=== PATIENT | female | born 1960 | race Caucasian/White ===

== ENCOUNTER 2016-07-06 07:34 | Emergency (ER) | payer MEDICAID ==
[~2016-07-06] VITALS: Ht 154.9 cm; Wt 63.5 kg
[2016-07-06 07:42] VITALS: BP 155/83
== END 2016-07-06 08:29 | disposition home or self-care (01) ==
LOC: ER 07:34
DX: F32.9 Major depressive disorder, single episode, unspecified (principal); Z76.0 Encounter for issue of repeat prescription

== ENCOUNTER 2016-08-06 10:50 | Emergency (ER) | payer MEDICAID ==
[~2016-08-06] VITALS: Ht 154.9 cm; Wt 72.6 kg
[2016-08-06 11:09] VITALS: BP 129/84
== END 2016-08-06 11:42 | disposition home or self-care (01) ==
LOC: ER 10:50
DX: I10 Essential (primary) hypertension (principal); Z76.0 Encounter for issue of repeat prescription

== ENCOUNTER → 2016-12-12 | Outpatient (CLI) | payer MEDICAID ==
[2016-12-13 08:56] LABS: Urine RBC None Seen /hpf (0 - 4)
[2016-12-13 09:21] LABS: Basophils # (auto) 0.1 uL; Basophils % (auto) 1.5 % (0.0-2.0); Eosinophils # (auto) 0.2 uL; Eosinophils % (auto) 3.4 % (0.0-7.0); Hematocrit 44.7 % (36.0-46.0); Hemoglobin 14.9 g/dL (12.2-16.2); Lymphocytes % (auto) 28.9 % (10.0-50.0); Mean Corpuscular Hemoglobin 28.4 pg (28.0-32.0); Mean Corpuscular Hgb Conc. 33.3 g/dL (32.0-36.0); Mean Corpuscular Volume 85.1 fL (80.0-100.0); Mean Platelet Volume 7.7 fL (6.9-10.8); Monocytes # (auto) 0.8 uL; Monocytes % (auto) 11.4 % (0.0-12.0); Neutrophils # (auto) 3.9 uL; Neutrophils % (auto) 54.8 % (37.0-80.0); Nucleated Red Blood Cells % 0.1 %; Platelet Count (auto) 337 10^3/uL (140-450); Red Cell Distribution Width 13.8 % (11.8-14.3)
[2016-12-13 09:41] LABS: Urine Bilirubin Negative (Negative); Urine Blood Negative /uL (Negative); Urine Color Yellow (Yellow); Urine Glucose Normal (Normal); Urine Ketone Negative (Negative); Urine Nitrite Negative (Negative); Urine Squamous Epithelial Cell FEW /hpf (<5); Urine Urobilinogen Normal (Negative)
[2016-12-13 09:59] LABS: Albumin 3.3 g/dL (3.4-5.0); BUN/Creatinine Ratio 19.8; Bilirubin, Total 0.5 mg/dL (0.2-1.0); Calcium 8.8 mg/dL (8.5-10.1); Potassium 3.7 mmol/L (3.5-5.1); Total Protein 7.5 g/dL (6.4-8.2)
== END | disposition home or self-care (01) ==
LOC: LAB 10:04
PROVIDERS: ATTEND Physician Assistant
DX: I10 Essential (primary) hypertension (principal); D64.9 Anemia, unspecified; E78.2 Mixed hyperlipidemia
CPT/HCPCS: 36415; 80053; 80061; 81001; 85025